=== PATIENT | male | born 1995 | race Caucasian/White ===

== ENCOUNTER 2021-11-10 14:34 | Emergency (ER) | payer SELFPAY ==
[~2021-11-10] VITALS: Ht 175.3 cm; Wt 63.5 kg
[2021-11-10 14:34] VITALS: BP 134/72
--- NOTE | 2021-11-10 14:35 | NUR ---
PT TAKEN TO BED 9
--- NOTE | 2021-11-10 14:48 | NUR ---
26 Y/O MALE BIBA TO ED WITH ABDOMINAL PAIN, N/V X 2 MONTHS, LATEST VOMITING EPISODE THIS AM. PT STATES FEELING LIGHTHEADED. WAS SEEN AT [facility] X 2 DAYS AGO, GIVEN REGLAN. DENIES DIARRHEA; SKIN COLOR IS APPROPRIATE FOR ETHNICITY/WARM/DRY; AAOX4 WITH EVEN AND STEADY GAIT; LUNGS CLEAR BL; HR EVEN AND REGULAR; PT DENIES TRAVELING TO A DIFFERENT COUNTRY; PT DENIES ANY FEVER, CP, SOB, OR COUGH AT THIS TIME; PATIENT STATES PAIN OF 9/10 AT THIS TIME; VSS; PATIENT POSITIONED FOR COMFORT; HOB ELEVATED; BEDRAILS UP X1; BED DOWN. ER MD MADE AWARE OF PT STATUS. PMEDHX: ASTHMA NKA
--- NOTE | 2021-11-10 14:48 | NUR ---
Note undone in EDM - 11/10/21 at 1454 by [email or web address] 26 Y/O MALE BIBA TO ED WITH ABDOMINAL PAIN, N/V X 2 MONTHS, LATEST VOMITING EPISODE THIS AM. PT STATES FEELING LIGHTHEADED. WAS SEEN AT [facility] X 2 DAYS AGO, GIVEN REGLAN. DENIES DIARRHEA; SKIN COLOR IS APPROPRIATE FOR ETHNICITY/WARM/DRY; AAOX4 WITH EVEN AND STEADY GAIT; LUNGS CLEAR BL; HR EVEN AND REGULAR; PT DENIES TRAVELING TO A DIFFERENT COUNTRY; PT DENIES ANY FEVER, CP, SOB, OR COUGH AT THIS TIME; PATIENT STATES PAIN OF 9/10 AT THIS TIME; VSS; PATIENT POSITIONED FOR COMFORT; HOB ELEVATED; BEDRAILS UP X1; BED DOWN. ER MD MADE AWARE OF PT STATUS.
[2021-11-10] MEDS ORDERED: HALOPERIDOL IM 5 MG/ML VIAL IVP ONE (15:10)
--- NOTE | 2021-11-10 15:40 | NUR ---
LAB AT THE BEDSIDE
--- NOTE | 2021-11-10 15:43 | NUR ---
URINE SENT TO LAB
[2021-11-10 15:56] LABS: BASOPHILS % (AUTO) 0.3 % (0.0-2.0); EOSINOPHILS % (AUTO) 1.2 % (0.0-4.0); HEMATOCRIT 40.4 % (36-52); HEMOGLOBIN 14.6 g/dL (12.0-18.0); LYMPHOCYTES # (AUTO) 1.2 K/uL (2.0-11.5); LYMPHOCYTES % (AUTO) 29.9 % (20.5-51.1); MEAN CORPUSCULAR HEMOGLOBIN 33 pg (27-31); MEAN CORPUSCULAR HGB CONC 36 g/dL (33-37); MEAN CORPUSCULAR VOLUME 90.1 fL (80-94); MONOCYTES # (AUTO) 0.5 K/uL (0.8-1.0); MONOCYTES % (AUTO) 12.3 % (1.7-9.3); NEUTROPHILS # (AUTO) 2.3 K/uL (1.8-7.7); NEUTROPHILS % (AUTO) 56.3 % (42.2-75.2); PLATELET COUNT (AUTO) 291 K/uL (140-450); RED BLOOD CELL COUNT(AUTO) 4.48 MIL/uL (4.20-6.10); RED CELL DISTRIBUTION WIDTH 12.4 % (11.6-13.7)
[2021-11-10 16:17] LABS: APPEARANCE,URINE CLEAR (CLEAR); BILIRUBIN,URINE NEGATIVE (NEGATIVE); BLOOD, URINE NEGATIVE (NEGATIVE); LEUKOCYTE ESTERASE ,URINE NEGATIVE (NEGATIVE); NITRITE, URINE NEGATIVE (NEGATIVE); UGLUCOSE NEGATIVE (NEGATIVE)
[2021-11-10 16:23] LABS: ALBUMIN 4.2 g/dL (3.4-5.0); ANION GAP 10.4 (8-16); CARBON DIOXIDE 30.2 mmol/L (21-32); COLOR,URINE AMBER (YELLOW); CREATININE 0.9 mg/dL (0.6-1.3); TOTAL BILIRUBIN 2.2 mg/dL (0.0-1.0)
[2021-11-10 16:27] LABS: POTASSIUM 2.6 mmol/L (3.5-5.1)
[2021-11-10] MEDS ORDERED: NACL 0.9% 1,000 ML IV SCH (16:30)
[2021-11-10 16:57] LABS: BARBITURATE, URINE NEGATIVE ng/ml (NEG <=200); BENZODIAZEPINE, URINE POSITIVE ng/mL (NEG <=200); CANNABINOID, URINE PP ng/mL (NEG <=50); COCAINE, URINE NEGATIVE ng/mL (NEG <=300); OPIATE, URINE POSITIVE ng/mL (NEG <=2000); PHENCYCLIDINE SCREEN,URINE NEGATIVE ng/mL (NEG <=25)
[2021-11-10] MEDS ORDERED: POTASSIUM CHL 40 MEQ/ D5-1/2NS 1,000 ML IV ONE (17:05)
[2021-11-10] MEDS ORDERED: POTASSIUM CHLORIDE 10 MEQ TABER PO SCH (17:21)
[2021-11-10] MEDS ORDERED: KCL 20 MEQ/WATER INJ PREMIX 100 ML IV SCH (17:25)
[2021-11-10 19:03] VITALS: BP 115/68
--- NOTE | 2021-11-10 19:05 | NUR ---
Patient discharged with v/s stable. Written and verbal after care instructions given and explained about cannaboid hyperemesis syndrome. Patient verbalized understanding. Ambulatory with steady gait. All questions addressed prior to discharge. Advised to follow up with PMD.
--- NOTE | 2021-11-17 08:35 | NUR ---
LATE ENTRY- IV POTASSIUM CHLORIDE DISCONTINUED AT 1905.
== END 2021-11-10 19:01 | disposition home or self-care (01) ==
LOC: MED 14:34
DX: E87.6 Hypokalemia (principal); R11.2 Nausea with vomiting, unspecified; J45.909 Unspecified asthma, uncomplicated
CPT/HCPCS: 36415; 80053; 80305; 81003; 83690; 85025; 96365; 96375; 99284; J1630; J3480; J7030